=== PATIENT | female | born 1975 | race Caucasian/White ===

== ENCOUNTER 2017-05-17 19:16 | Emergency (ER) | payer MEDICAID ==
[~2017-05-17] VITALS: Ht 157.5 cm; Wt 60.8 kg
[2017-05-17 19:21] VITALS: Ht 157.5 cm; Wt 60.8 kg
[2017-05-17 21:35] VITALS: BP 128/68
== END 2017-05-17 21:35 | disposition home or self-care (01) ==
LOC: ED 19:16
DX: L50.9 Urticaria, unspecified (principal); T78.40XA Allergy, unspecified, initial encounter; X58.XXXA Exposure to other specified factors, initial encounter
CPT/HCPCS: J7512; Q0163